=== PATIENT | female | born 1940 | race Caucasian/White ===

== ENCOUNTER 2018-10-18 14:02 | Emergency (ER) | payer MEDICARE ==
[~2018-10-18] VITALS: Ht 154.9 cm; Wt 60.8 kg
[2018-10-18] MEDS ORDERED: CEPHALEXIN (14:24)
[2018-10-18] MEDS ORDERED: ANAGRELIDE (14:24)
[2018-10-18] MEDS ORDERED: ALBUTEROL SULFATE 2.5 MG/3 ML NEBU NEB ONE (15:15)
[2018-10-18] MEDS ORDERED: predniSONE 10 MG TABLET PO ONE (15:15)
[2018-10-18] MEDS ORDERED: IPRATROPIUM BROMIDE 0.5 MG/2.5 ML NEBU NEB ONE (15:15)
[2018-10-18] MEDS ORDERED: predniSONE 20 MG TABLET ONE (15:22)
--- NOTE | 2018-10-18 15:29 | NUR ---
RT AND CUSTOMER ACCOUNT COORDINATOR AT BEDSIDE.
[2018-10-18 15:31] LABS: BASOPHILS # (AUTO) 0.1 K/uL (0.0-8.0); EOSINOPHILS # (AUTO) 0.2 K/uL (0.0-0.7); EOSINOPHILS % (AUTO) 2.2 % (0.0-7.0); HEMATOCRIT 42.7 % (31.2-41.9); LYMPHOCYTES # (AUTO) 1.3 K/uL (20.0-40.0); LYMPHOCYTES % (AUTO) 16.6 % (20.5-51.5); MEAN CORPUSCULAR HEMOGLOBIN 28.7 uug (24.7-32.8); MEAN CORPUSCULAR HGB CONC 33 g/dL (32.3-35.6); MEAN CORPUSCULAR VOLUME 87.6 fL (75.5-95.3); MONOCYTES # (AUTO) 0.8 K/uL (2.0-10.0); MONOCYTES % (AUTO) 10.3 % (0.0-11.0); NEUTROPHILS # (AUTO) 5.5 K/uL (1.8-8.9); NEUTROPHILS % (AUTO) 69.9 % (38.5-71.5); PLATELET COUNT (AUTO) 591 K/uL (179-408); RED BLOOD CELL COUNT(AUTO) 4.87 MIL/uL (3.63-4.92); WHITE BLOOD COUNT (AUTO) 7.9 K/uL (3.8-11.8)
[2018-10-18 15:37] LABS: CARBON DIOXIDE 28 mmol/L (21-32); CHLORIDE 96 mmol/L (98-107); CREATININE 0.7 mg/dL (0.6-1.3); GLUCOSE 90 mg/dL (74-106); POTASSIUM 4.2 mmol/L (3.5-5.1); UREA NITROGEN, BLOOD 17 mg/dL (7-18)
[2018-10-18 15:49] LABS: ALANINE AMINOTRANSFERASE 24 U/L (14-59); ALKALINE PHOSPHATASE 50 U/L (50-136); ASPARTATE AMINOTRANSFERASE 15 U/L (15-37); BILIRUBIN,DIRECT 0.1 mg/dL (0.0-0.2); BILIRUBIN,TOTAL 0.3 mg/dL (0.2-1.0); TOTAL PROTEIN, SERUM 7.8 g/dL (6.4-8.2)
[2018-10-18 16:46] VITALS: BP 114/77
--- NOTE | 2018-10-18 16:46 | NUR ---
Patient discharged to home in stable conditon. Written and verbal after care instructions given. Patient verbalizes understanding of instructions. PT D/C W/ PRESCRIPTIONS. ALL BELONGINGS W/ PT. PT SELF-AMBULATED W/O DIFFICULTY.
== END 2018-10-18 16:47 | disposition home or self-care (01) ==
LOC: ER 14:02
DX: J45.909 Unspecified asthma, uncomplicated (principal); Z79.899 Other long term (current) drug therapy
CPT/HCPCS: 36415; 71045; 80048; 80076; 83880; 84484; 85025; 93005; 94644; 99285; J7512; 70030-TC; A4663; J3590

== ENCOUNTER 2018-10-21 00:42 | Emergency (ER) | payer MEDICARE ==
[~2018-10-21] VITALS: Ht 157.5 cm; Wt 63.5 kg
[~2018-10-21 00:42] MED LIST: ANAGRELIDE; CEPHALEXIN
--- NOTE | 2018-10-21 00:51 | NUR ---
DR. VIDES AT BEDSIDE FOR MSE.
--- NOTE | 2018-10-21 00:51 | NUR ---
PATIENT WALKED INTO ER FOR C/O COUGH, AND WHEEZING. WAS SEEN HERE 10/18/18 FOR SIMILAR SYMTPOMS. STATES HAS NOT FILLED RX GIVEN TO HER AT LAST VISIT.PATIENT O2 99% ON RA. AFEBRILE AT THIS TIME.
[2018-10-21] MEDS ORDERED: predniSONE 50 MG TABLET ONE (00:59)
[2018-10-21] MEDS ORDERED: predniSONE 10 MG TABLET ONE (00:59)
[2018-10-21] MEDS ORDERED: predniSONE 10 MG TABLET PO ONE (01:00)
[2018-10-21] MEDS ORDERED: IPRATROPIUM BROMIDE 0.5 MG/2.5 ML NEBU NEB ONE ×2 (01:00→01:45)
[2018-10-21] MEDS ORDERED: ALBUTEROL SULFATE 2.5 MG/3 ML NEBU NEB ONE (01:00)
--- NOTE | 2018-10-21 01:08 | NUR ---
RT AT BEDSIDE FOR HHN.
[2018-10-21] MEDS ORDERED: ALBUTEROL SULFATE 2.5 MG/3 ML NEBU ONE (01:10)
[2018-10-21] MEDS ORDERED: IPRATROPIUM BROMIDE 0.5 MG/2.5 ML NEBU ONE ×2 (01:10→01:45)
[2018-10-21] MEDS ORDERED: ALBUTEROL SULFATE 2.5 MG/ 0.5 ML NEBU NEB ONE (01:45)
[2018-10-21] MEDS ORDERED: ALBUTEROL SULFATE 2.5 MG/ 0.5 ML NEBU ONE (01:46)
[2018-10-21] MEDS ORDERED: DOXYCYCLINE HYCLATE 100 MG TABLET ONE (01:59)
[2018-10-21] MEDS ORDERED: DOXYCYCLINE HYCLATE 100 MG TABLET PO ONE (02:00)
--- NOTE | 2018-10-21 02:18 | NUR ---
Patient discharged to home in stable conditon. Written and verbal after care instructions given. Patient verbalizes understanding of instructions. PATIENT LEFT WITH STABLE GAIT.
[2018-10-21 02:19] VITALS: BP 119/75
== END 2018-10-21 02:29 | disposition home or self-care (01) ==
LOC: ER 00:47
DX: J45.909 Unspecified asthma, uncomplicated (principal); Z79.899 Other long term (current) drug therapy
CPT/HCPCS: 71045; 94640 ×2; 99284; J7512 ×2; A4663; J3590

== ENCOUNTER 2024-08-24 15:05 | Emergency (ER) | payer MEDICARE ==
[~2024-08-24] VITALS: Ht 152.4 cm; Wt 56.2 kg
[2024-08-24 17:45] LABS: BASOPHILS # (AUTO) 0.1 K/UL (0.0-0.2); BASOPHILS % (AUTO) 0.8 % (0.0-2.0); EOSINOPHILS # (AUTO) 0.1 K/uL (0.0-0.7); EOSINOPHILS % (AUTO) 0.4 % (0.0-7.0); HEMOGLOBIN 13.8 g/dL (10.9-14.3); LYMPHOCYTES # (AUTO) 0.9 K/uL (0.8-4.8); LYMPHOCYTES % (AUTO) 5.7 % (20.5-51.5); MEAN CORPUSCULAR HEMOGLOBIN 28.6 uug (24.7-32.8); MEAN CORPUSCULAR HGB CONC 33 g/dL (32.3-35.6); MEAN CORPUSCULAR VOLUME 86.8 fL (75.5-95.3); MONOCYTES # (AUTO) 1.1 K/uL (0.1-1.30); MONOCYTES % (AUTO) 6.9 % (0.0-11.0); NEUTROPHILS # (AUTO) 13.1 K/uL (1.8-8.9); NEUTROPHILS % (AUTO) 86.2 % (38.5-71.5); PLATELET COUNT (AUTO) 777 K/uL (179-408); RED BLOOD CELL COUNT(AUTO) 4.84 MIL/uL (3.63-4.92); RED CELL DISTRIBUTION WIDTH 14.6 % (12.3-17.7); WHITE BLOOD COUNT (AUTO) 15.2 K/uL (3.8-11.8)
[2024-08-24 17:58] LABS: CALCIUM 10.2 mg/dL (8.5-10.1); CARBON DIOXIDE 28 mmol/L (21-32); CHLORIDE 100 mmol/L (98-107); CREATININE 0.7 mg/dL (0.6-1.3); GLUCOSE 94 mg/dL (74-106); POTASSIUM 5.4 mmol/L (3.5-5.1); SODIUM SERUM 136 mmol/L (136-145); UREA NITROGEN, BLOOD 15 mg/dL (7-18)
[2024-08-24 18:07] LABS: ALANINE AMINOTRANSFERASE 15 U/L (14-59); ALBUMIN 3.6 g/dL (3.4-5.0); ALKALINE PHOSPHATASE 51 U/L (50-136); ASPARTATE AMINOTRANSFERASE 16 U/L (15-37); BILIRUBIN,DIRECT 0.1 mg/dL (0.0-0.2); BILIRUBIN,TOTAL 0.7 mg/dL (0.2-1.0); LIPASE 23 U/L (16-77); TOTAL PROTEIN, SERUM 7.5 g/dL (6.4-8.2)
[2024-08-24 18:53] LABS: *BILIRUBIN,URIN NEGATIVE (NEGATIVE); *BLOOD, URINE NEGATIVE (NEGATIVE); *CLARITY,URINE CLEAR (CLEAR); *COLOR,URINE YELLOW (YELLOW); *KETONES,URINE 1+ (NEGATIVE); *PROTEIN,URINE NEGATIVE (NEGATIVE); *UROBILINOGEN,URINE 0.2 E.U./dl (NORMAL); LEUKOCYTE ESTERASE ,URINE TRACE (NEGATIVE); NITRITE, URINE NEGATIVE (NEGATIVE); PH,URINE 5.5 (5.0-8.0); UGLUCOSE NEGATIVE (NEGATIVE)
[2024-08-24] MEDS ORDERED: AMOX-430 PO (19:29)
[2024-08-24] MEDS ORDERED: AMOXICILLIN-CLAVUL 875-125MG TABLET ONE (19:40)
[2024-08-24] MEDS: AMOXICILLIN-CLAVUL 875-125MG TABLET PO ONE (19:44)
[2024-08-24 19:47] VITALS: BP 156/82; TEMP 98.5; O2SAT 97
[2024-08-24 20:07] LABS: BACTERIA,URINE FEW /HPF (NONE SEEN); SQUAMOUS EPITHELIAL CELL,UR FEW /HPF (NONE SEEN); WBC,URINE 0-3 /HPF (0-3)
== END 2024-08-24 20:01 | disposition home or self-care (01) ==
LOC: ER 15:05
DX: K57.32 Diverticulitis of large intestine without perforation or abscess without bleeding (principal); R07.9 Chest pain, unspecified; R10.9 Unspecified abdominal pain; R19.7 Diarrhea, unspecified; Z85.3 Personal history of malignant neoplasm of breast; Z87.09 Personal history of other diseases of the respiratory system
CPT/HCPCS: 36415; 71045; 83690; 84484; 85025; A4606; A4663